=== PATIENT | female | born 1995 | race Caucasian/White ===

== ENCOUNTER 2023-05-21 08:00 | Outpatient (CLI) | payer BC | END 2023-05-21 23:59 | disposition home or self-care (01) | LOC: LAB.N 08:00 | PROVIDERS: ATTEND Specialist | DX: R07.0 Pain in throat (principal) | CPT/HCPCS: 87070 ==

== ENCOUNTER 2023-07-02 09:11 | Outpatient (CLI) | payer BC ==
[2023-07-02 12:14] LABS: BASOPHILS % (AUTO) 0.3 %; EOSINOPHILS # (AUTO) 0.1 10^3/uL (0.0-0.7); EOSINOPHILS % (AUTO) 0.9 %; HCT - HEMATOCRIT 40.6 % (37.0-47.0); HGB - HEMOGLOBIN 12.7 g/dL (12.0-16.0); LYMPHOCYTES # (AUTO) 2.3 10^3/uL (1.5-3.5); LYMPHOCYTES % (AUTO) 34.4 %; MEAN CORPUSCULAR HEMOGLOBIN 25.7 pg (27.0-31.0); MEAN CORPUSCULAR HGB CONC 31.3 g/dL (32.0-36.0); MEAN PLATELET VOLUME 11.7 fL (7.9-10.8); MONOCYTES # (AUTO) 0.4 10^3/uL (0.0-1.0); MONOCYTES % (AUTO) 6.3 %; NEUTROPHILS # (AUTO) 3.9 10^3/uL (1.5-6.6); NEUTROPHILS % (AUTO) 57.8 %; PLT - PLATELET COUNT 318 10^3/uL (130-450); RED BLOOD COUNT 4.95 10^6/uL (4.20-5.40); RED CELL DISTRIBUTION WIDTH 12.7 % (12.0-15.0); WHITE BLOOD COUNT 6.8 x10^3/uL (4.8-10.8)
[2023-07-02 12:45] LABS: ALBUMIN 4.1 g/dL (3.2-5.5); ALBUMIN/GLOBULIN RATIO 1.3 (1.0-2.2); BILIRUBIN,TOTAL 0.4 mg/dL (0.2-1.0); CALCIUM 9.5 mg/dL (8.5-10.3); CREATININE 0.7 mg/dL (0.6-1.3); POTASSIUM 4.4 mmol/L (3.5-4.5); THYROID STIMULATING HORMONE 2.72 uIU/mL (0.34-5.60); TOTAL PROTEIN 7.2 g/dL (6.4-8.9)
== END 2023-07-02 09:12 | disposition home or self-care (01) ==
LOC: LAB.N 09:11
PROVIDERS: ATTEND Physician Assistant
DX: Z13.9 Encounter for screening, unspecified (principal)
CPT/HCPCS: 36415; 80053; 84443; 85025

== ENCOUNTER 2024-01-05 09:12 | Outpatient (CLI) | payer BC ==
[2024-01-05 12:10] LABS: BASOPHILS % (AUTO) 0.7 %; EOSINOPHILS # (AUTO) 0.1 10^3/uL (0.0-0.7); EOSINOPHILS % (AUTO) 1.5 %; HCT - HEMATOCRIT 39.4 % (37.0-47.0); LYMPHOCYTES # (AUTO) 1.7 10^3/uL (1.5-3.5); LYMPHOCYTES % (AUTO) 32.2 %; MEAN CORPUSCULAR HEMOGLOBIN 25.9 pg (27.0-31.0); MEAN CORPUSCULAR HGB CONC 30.5 g/dL (32.0-36.0); MEAN CORPUSCULAR VOLUME 85.1 fL (81.0-99.0); MEAN PLATELET VOLUME 11.5 fL (7.9-10.8); MONOCYTES # (AUTO) 0.4 10^3/uL (0.0-1.0); MONOCYTES % (AUTO) 7.8 %; NEUTROPHILS # (AUTO) 3.1 10^3/uL (1.5-6.6); NEUTROPHILS % (AUTO) 57.6 %; PLT - PLATELET COUNT 313 10^3/uL (130-450); RED BLOOD COUNT 4.63 10^6/uL (4.20-5.40); RED CELL DISTRIBUTION WIDTH 13.8 % (12.0-15.0); WHITE BLOOD COUNT 5.4 x10^3/uL (4.8-10.8)
[2024-01-05 12:44] LABS: THYROID STIMULATING HORMONE 2.49 uIU/mL (0.34-5.60)
[2024-01-05 12:47] LABS: FERRITIN 7.6 ng/mL (11.0-306.8)
== END 2024-01-05 09:13 | disposition home or self-care (01) ==
LOC: LAB.N 09:12
PROVIDERS: ATTEND Nurse Practitioner
DX: N94.6 Dysmenorrhea, unspecified (principal)
CPT/HCPCS: 36415; 82728; 84439; 84443; 85025

== ENCOUNTER 2024-01-08 07:47 | Outpatient (CLI) | payer BC ==
[2024-01-08] MEDS ORDERED: iohexoL-300 100 ML VIAL ONE (08:08)
[2024-01-08] MEDS ORDERED: DIATRIZOATE MEGLU/DIATRIZO SOD 30 ML BOTTLE PO ONE (08:09)
[2024-01-08] MEDS: iohexoL-300 100 ML VIAL IVP ONE (10:59)
[2024-01-08] MEDS: DIATRIZOATE MEGLU/DIATRIZO SOD 30 ML BOTTLE PO ONE (10:59)
--- NOTE | 2024-01-08 22:32 | CT Report ---
PROCEDURE: Abdomen/Pelvis W INDICATIONS: PELVIC PAIN, ABD PAIN CONTRAST: 100ml omni 300 TECHNIQUE: After the administration of intravenous contrast, a CT scan of the abdomen and pelvis was performed. Images were recorded and evaluated at appropriate window settings. Reformats: coronal and sagittal. F or radiation dose reduction, the following was used: automated exposure control, adjustment of mA and /or kV according to patient size. COMPARISON: None. FINDINGS: Image quality: Diagnostic. Lower chest: Unremarkable. Liver: No solid mass. Gallbladder and biliary tree: Spleen: No splenomegaly. Pancreas: No pancreatic ductal dilation. Adrenals: No adrenal nodule. Kidneys and ureters: No hydronephrosis. No renal cystic lesion which requires follow up. No solid mas s. Stomach, bowel and peritoneum: No bowel distension. No pathologic free fluid. Normal caliber appendix in the right lower quadrant. Lymph nodes: No central or retroperitoneal adenopathy. Vessels: No infrarenal aortic aneurysm. PELVIS Reproductive organs: Right adnexal simple-appearing cystic structure measuring up to 5.1 cm (3/112). Bladder: No abnormal wall thickening, accounting for underdistention. Pelvic lymph nodes: No pelvic adenopathy by size criteria. Bones: No aggressive osseous abnormality. Other: No significant ventral or inguinal hernia. IMPRESSION: Right adnexal simple-appearing cystic structure, probable ovarian cyst measuring up to 5.1 cm. Consid er further evaluation with pelvic ultrasound if clinically appropriate. Reviewed by: Daysi Dodson MD, PhD on 01/08/2024 9:31 PM [place] Approved by: Daysi Dodson MD, PhD on 01/08/2024 9:31 PM [place] Station ID: [id number]
== END 2024-01-08 07:48 | disposition home or self-care (01) ==
LOC: DI 07:47
PROVIDERS: ATTEND Nurse Practitioner
DX: R10.9 Unspecified abdominal pain (principal); R10.2 Pelvic and perineal pain; R14.0 Abdominal distension (gaseous); R93.89 Abnormal findings on diagnostic imaging of other specified body structures
CPT/HCPCS: 74177; Q9963; Q9967

== ENCOUNTER 2024-01-12 17:00 | Outpatient (CLI) | payer BC ==
--- NOTE | 2024-01-13 10:56 | Ultrasound Report ---
PROCEDURE: Pelvic Complete INDICATIONS: PELVIC PAIN, ABD PAIN TECHNIQUE: Real-time transabdominal scanning was performed of the pelvic organs, with image documentation. COMPARISON: CT abdomen and pelvis on January 10, 2024 FINDINGS: Uterus: Uterus is anteverted and normal in size at 8.3 x 2.8 x 4 cm. The myometrium is homogeneous. The endometrium measures 6.6 mm in combined thickness. Cervix and vagina are within normal limits. Ovaries: The right ovary measures 5.6 x 2.3 x 4.9 cm, with a calculated ovarian volume of 32.7 cc. The left ovary measures 2 x 1.7 x 3.1 cm, with a calculated ovarian volume of 5.4 cc. The ovaries reid ve a normal sonographic appearance. Less than 12 follicles can be seen in each ovary. No adnexal ma sses are seen. Mildly complex cyst in the right ovary measuring 4.3 x 1.4 x 5 cm. Other: No free pelvic fluid. IMPRESSION: 1.Mildly complex right ovarian cyst measuring 4.3 x 1.4 x 5 cm, possibly hemorrhagic. Consider a repe at ultrasound in 6-12 weeks, per SRU guidelines. 2.Normal sonographic appearance of the uterus and left ovary. Reviewed by: Shahbaz Sanchez MD on 01/13/2024 10:55 AM PDT Approved by: Shahbaz Sanchez MD on 01/13/2024 10:55 AM PDT Station ID: [id number]
== END 2024-01-12 17:01 | disposition home or self-care (01) ==
LOC: DI 17:00
PROVIDERS: ATTEND Nurse Practitioner
DX: R10.9 Unspecified abdominal pain (principal); R10.2 Pelvic and perineal pain; R14.0 Abdominal distension (gaseous); N83.201 Unspecified ovarian cyst, right side

== ENCOUNTER 2024-02-23 08:46 | Outpatient (CLI) | payer BC ==
--- NOTE | 2024-02-23 14:35 | Ultrasound Report ---
PROCEDURE: Pelvic Complete INDICATIONS: OVARIAN CYST TECHNIQUE: Real-time transabdominal scanning was performed of the pelvic organs, with image documentation. COMPARISON: Pelvic ultrasound dated 01/12/2024 FINDINGS: Uterus: Uterus is anteverted and normal in size at 7.9 x 2.9 x 4.0 cm. The myometrium is homogeneou s. The endometrium measures 5.8 mm in combined thickness. Ovaries: The right ovary measures 2.5 x 1.4 x 2.8 cm, with a calculated ovarian volume of 5.6 cc. T he left ovary measures 2.0 x 2.5 x 1.8 cm, with a calculated ovarian volume of 4.8 cc. The ovaries h ave a normal sonographic appearance. Less than 12 follicles can be seen in each ovary. No adnexal m asses are seen. The right ovarian cyst measures 1.5 x 0.6 x 0.9 cm on the current study. This previou sly measured 4.3 x 1.4 x 5.0 cm. No cystic lesions measuring greater than 3 cm. Other: No free pelvic fluid. IMPRESSION: 1. Marked decrease in the size of the right ovarian cyst when compared to the prior study. This cyst is now within physiologic limits for size in a premenopausal female. No further sonographic follow-up recommended. Reviewed by: Vicky Mei MD on 02/23/2024 2:34 PM PDT Approved by: Vicky Mei MD on 02/23/2024 2:34 PM PDT Station ID: [id number]
== END 2024-02-23 08:47 | disposition home or self-care (01) ==
LOC: DI 08:46
PROVIDERS: ATTEND Nurse Practitioner
DX: N83.201 Unspecified ovarian cyst, right side (principal)